=== PATIENT | female | born 1995 | race Caucasian/White ===

== ENCOUNTER 2020-12-02 21:25 | Emergency (ER) | payer MEDICAID, SELFPAY ==
[2020-12-02 21:33] VITALS: BP 117/71; PULSE 82; RESP 16; TEMP 36.6; O2SAT 100
--- NOTE | 2020-12-02 21:41 | W.ED.GENAD ---
Discharge Plan Disposition Patient Disposition: HOME Condition: Good Discharge Details Clinical Impression: Vasovagal syncope Primary Care Provider: None,None ED Provider: Dawood Thorne Home Meds and New Rx's Prescriptions: No Action No Known Home Meds RF: 0 Discharge Instructions Instructions: Syncope (ED) Additional Instructions: Your EKG, head CT, laboratory studies are all normal. This is likely vagal syncope as we discussed. Rest and hydrate over the weekend. Follow-up with primary care next week if you continue to feel lightheaded or dizzy. Return to ED if you develop severe headache, neurologic changes, recurrent syncope, chest pain, shortness of breath. Referrals: Primary Care Provider [Outside] Medical Decision Making Patient likely had vagal event resulting in syncope and myoclonic jerks, not seizures. She is neurologically intact. Vital signs and exam are normal. EKG is normal. test is negative. Will check basic lab and obtain head CT due to fall with loss of consciousness more likely related to vagal syncope and traumatic injury. If no significant abnormalities we will plan discharge and follow-up PCP as needed. Labs are normal. Head CT is normal. Patient has been fine here. Discharged home with presumed vagal syncope associated with myoclonic jerks. Return to ED for severe headache, neurologic change, further syncope, chest pain, shortness of breath. Lab Data Lab results reviewed: Yes I reviewed the patient's lab results. ECG Data Attestation: I personally reviewed and interpreted this ECG (s) as follows: Prior ECG tracings: not available for review Interpretation: Normal HPI General Mode of arrival: ambulatory. Date/Time Provider Initiated Documentation: 12/02/20 21:40. Limitations to Documentation: no limitations. Information obtained by: patient and RN notes reviewed. HPI Narrative: Patient presents to ED status post probable syncopal event resulting in a fall backwards striking head. Patient was at a [facility] for a friend. She did smoke some marijuana prior, although not a significant amount. Smokes regularly at night for sleep, so this was normal. Has not been ill as well. Has eat and drink today. Denies having headache, chest pain, palpitations, shortness of breath, vomiting, diarrhea, bleeding, pelvic pain. Friend reports that she head shaking after she fell. Patient denies tongue biting, incontinence, confusion when she came around. She has not passed out previously. She did feel lightheaded, mildly nauseous, and knew she needed to sit down. Related Data Home Medications Medication Instructions Recorded Confirmed Unknown [No Known Home Meds] 12/02/20 12/02/20 Allergies Allergy/AdvReac Type Severity Reaction Status Date / Time No Known Drug Allergies AdvReac Unverified 12/02/20 21:40 General Stated Complaint: Dizzy/Sync JIM: 3 Review of Systems Narrative: As documented in HPI otherwise negative as below. Const: no fever, chills, weakness Resp: no cough, SOB, pleuritic pain CV: no CP, diaphoresis, edema, syncope GI: no abdominal pain, nausea, vomiting, diarrhea Neuro: no headache, numbness, focal weakness, confusion PFSH Medical History No significant past medical history Surgical History No significant past surgical history Social History Smoking/Tobacco Use Status: Current every day Tobacco Type: cigarettes Smoking risk assessment performed?: Yes Alcohol Intake: current Alcohol Intake frequency: a few times a month Drug use: Daily Substance use type: marijuana Do you feel safe at home: Yes Do you feel safe in your relationship?: Yes Exam Narrative Exam Narrative: Const: WDWN female in NAD. HEENT: NC/AT. Normal facial exam. Eyes: PERRL and EOMI Neck: Supple. Trachea midline. No midline tenderness. Lungs: Normal respiratory effort. Lungs are clear. Cor: RRR without murmur/gallop. Good radial pulses. GI: Soft. NT/ND. No guarding or rebound. Neuro: A+O x 3. Normal speech, mentation, gait. Cranial nerves II - XII grossly intact. No gross motor or sensory deficit. Ext: No C/C/E. Skin: Warm and dry without rash. Course Vital Signs Vital signs: Vital Signs Temperature 97.9 F 12/02/20 21:33 Pulse 82 12/02/20 21:33 Respiratory Rate 16 12/02/20 21:33 Blood Pressure 117/71 12/02/20 21:33 Pulse Oximetry 100 12/02/20 21:33 Temperature 97.9 F 12/02/20 21:33 Pulse 82 12/02/20 21:33 Respiratory Rate 16 12/02/20 21:33 Blood Pressure 117/71 12/02/20 21:33 Blood Pressure Position Sitting 12/02/20 21:33 Pulse Oximetry 100 12/02/20 21:33 Oxygen Delivery Method Room Air 12/02/20 21:33 Oxygen Flow Rate 0 12/02/20 21:33 Pain Level 4 12/02/20 21:33
[2020-12-02 21:45] VITALS: BP 126/91; PULSE 94; RESP 16; O2SAT 100
--- NOTE | 2020-12-02 21:45 | RT.EKG_ITS ---
APPROVED REPORT Exam: Resting ECG Reason for Exam: syncope Patient Location: E HR:68 bpm ECG Measurements Heart Rate 68 AXIS TX 140 P 71 QRSd 93 QRS 57 QT 396 T 42 QTc 420 Conclusion Sinus rhythm...normal P axis, V-rate 60- 99 Normal Electrocardiogram
[2020-12-02 22:05] LABS: Abs Immature Grans 0.02 10^3/uL (0.0-0.06); Absolute Basophil Count 0.03 10^3/uL (0.0-0.2); Absolute Eosinophil Count 0.16 10^3/uL (0.0-0.7); Absolute Lymphocyte Count 3.31 10^3/uL (1.2-3.4); Absolute Monocyte Count 0.82 10^3/uL (0.1-0.8); Basophils % 0.3; Eosinophils % 1.8; HCT 39.3 % (36.0-46.0); Immature Grans % 0.2; Lymphocytes % 37.4; MCH 30.8 pg (27.0-33.0); MCHC 33.1 % (32.0-36.0); MCV 93.1 fL (80-95); Monocytes % 9.3; Nucleated RBC 0 %; Platelet Count 224 10^3/uL (130-400); RBC 4.22 10^6/uL (3.93-5.22); RDW 11.7 % (11.7-14.6); RDW-SD 39.8 fL; WBC 8.84 10^3/uL (4.4-10.8)
[2020-12-02] MEDS: Normal Saline 1,000 ML 1000 ML IV (22:05)
--- NOTE | 2020-12-02 22:10 | DI.CT_ITS ---
Exam(s) CT HEAD WO EXAM: CT HEAD WO CLINICAL HISTORY: syncope with fall struck head/LOC. TECHNIQUE: Imaging Protocol: Axial computed tomography images with coronal and sagittal reformatted images were created and reviewed COMPARISON: No exams were available for comparison FINDINGS: There are no skull fractures nor fluid in the visualized paranasal sinuses. There is no evidence of intracranial hemorrhage, mass effect, or shift of midline structures. There are no extra-axial fluid collections. The ventricles are not enlarged or shifted and there is no blo od within the ventricular system nor within the basal cisterns. IMPRESSION: No acute intracranial findings on this noninfused CT scan of the brain. RADIATION DOSE DELIVERED: 842.02mGy.cm Total DLP DATA REPOSITORY: All CT scans at this facility are submitted to the National Radiology Data Registry (NRDR) Dose Index Registry (DIR) with the [employer] ([employer]). RADIATION OPTIMIZATION: All CT scans at this facility use at least one of these dose optimization te chniques: automated exposure control; mA and/or kV adjustment per patient size (includes targeted exa ms where dose is matched to clinical indication); or iterative reconstruction.
[2020-12-02 22:13] LABS: Anion Gap 6.4 mmol/L (3-11); BUN 12 mg/dL (7-18); CO2 29.6 mmol/L (21.0-32.0); CREATININE 0.9 mg/dL (0.55-1.02); Calcium 8.8 mg/dL (8.5-10.1); Chloride 104 mmol/L (98-107); Glucose 106 mg/dL (74-106); Magnesium 2.1 mg/dL (1.8-2.4); Potassium 4.1 mmol/L (3.5-5.1); Sodium 140 mmol/L (136-145)
[2020-12-02 22:15] VITALS: BP 109/79; PULSE 84; RESP 20; O2SAT 100
--- NOTE | 2020-12-02 22:18 | DI.VRAD_ITS ---
PROCEDURE INFORMATION: Exam: CT Head Without Contrast Exam date and time: 12/02/2020 9:52 PM Age: 25 years old Clinical indication: Injury or trauma; Abrasion; Forehead; Patient HX: S/P fall, loc TECHNIQUE: Imaging protocol: Computed tomography of the head without contrast. Radiation optimization: All CT scans at this facility use at least one of these dose optimization techniques: automated exposure control; mA and/or kV adjustment per patient size (includes targeted exams where dose is matched to clinical indication); or iterative reconstruction. COMPARISON: No relevant prior studies available. FINDINGS: Brain: Normal. No hemorrhage. Unremarkable white matter. No mass effect. Cerebral ventricles: No ventriculomegaly. Paranasal sinuses: Visualized sinuses are unremarkable. No fluid levels. Mastoid air cells: Visualized mastoid air cells are well aerated. Bones/joints: Unremarkable. No acute fracture. Soft tissues: Unremarkable. IMPRESSION: No acute intracranial abnormality. Dictated and Authenticated by: Jose Hyatt MD. Ordering:CUONG Seay MD
== END 2020-12-02 22:32 | disposition home or self-care (01) ==
PROVIDERS: Emergency Provider Emergency Medicine
DX: R55 Syncope and collapse (principal); R11.0 Nausea; F12.10 Cannabis abuse, uncomplicated
CPT/HCPCS: 36415; 80048; 81025; 93005; 99285; 70450; 83735; 85025; 93010; 99284